=== PATIENT | female | born 1985 | race African-American/Black ===

== ENCOUNTER 2019-10-23 11:38 | Emergency (ER) | payer OTHER ==
[~2019-10-23] VITALS: Ht 157.5 cm; Wt 54.4 kg
[~2019-10-23 11:38] MED LIST: CEPHALEXIN500 MG ORAL; FLUCONAZOLE100 MG ORAL; IBUPROFEN600 MG ORAL; PHENAZOPYRIDIN200 MG ORAL
--- NOTE | 2019-10-23 11:51 | NUR ---
ED Nurse Note: Pt ambulated to ED d/t difficulty urinating with burning sensation. Pt stated "I was already here last week with same complaint, i was given ATB prescriptions but wasnt able to start because i was having problems with my insurance." Placed on bed. Obtained urine specimen.
[2019-10-23 12:02] VITALS: BP 116/71
[2019-10-23 12:06] LABS: APPEARANCE,URINE SLIGHTLY CLOUDY; BILIRUBIN, URINE NEGATIVE (NEGATIVE); GLUCOSE, URINE (UA) NEGATIVE (NEGATIVE); KETONES,URINE 1+ (NEGATIVE); LEUKOCYTE ESTERASE ,URINE 3+ (NEGATIVE); NITRITE,URINE POSITIVE (NEGATIVE); PH,URINE 5 (4.5-8.0); PROTEIN,URINE 3+ (NEGATIVE); UROBILINOGEN,URINE 1 MG/DL (0.0-1.0)
[2019-10-23 12:12] LABS: COLOR,URINE YELLOW
[2019-10-23] MEDS ORDERED: CEPHALEXIN500 MG ORAL (12:32)
[2019-10-23] MEDS ORDERED: PHENAZOPYRIDIN100 MG ORAL (12:32)
[2019-10-23 12:35] VITALS: BP 118/72
--- NOTE | 2019-10-23 12:35 | NUR ---
ER DISCHARGE NOTE: Pt is medically cleared to be discharged per ERMD. Pt is AOx4, VSS, on RA; no signs of acute distress. pt was given dc and prescription instructions, pt was able to verbalize understanding, pt id band removed. pt is able to ambulate with steady gait. pt took all belongings.
--- NOTE | 2019-10-23 14:00 | Emergency Room Report ---
History of Present Illness General Chief Complaint: Female Urogenital Problems Source: Patient Present Illness HPI 33-year-old female presents ED for evaluation. Complaining of dysuria and frequent urination since yesterday. Denies fevers or chills. Denies flank pain. Denies nausea or vomiting. States prior history of UTI and this feels the same. No other aggravating relieving factors. Denies any other associated symptoms Allergies: Coded Allergies: No Known Allergies (Unverified , 10/06/19) Patient History Past Medical History: none Past Surgical History: none Pertinent Family History: none Social History: Denies: smoking, alcohol use, drug use Last Menstrual Period: 09/13/19 Now: No Immunizations: UTD Reviewed Nursing Documentation: PMH: Agreed; PSxH: Agreed Nursing Documentation-PMH Past Medical History: No History, Except For Review of Systems All Other Systems: negative except mentioned in HPI Physical Exam Vital Signs Date Time Temp Pulse Resp B/P (MAP) Pulse Ox O2 Delivery O2 Flow Rate FiO2 10/23/19 11:46 98.8 85 16 116/71 (86) 100 Room Air Sp02 EP Interpretation: reviewed, normal General Appearance: no apparent distress, alert, GCS 15, non-toxic Head: normocephalic, atraumatic Eyes: bilateral eye normal inspection, bilateral eye PERRL ENT: hearing grossly normal, normal pharynx, no angioedema, normal voice Neck: full range of motion, supple/symm/no masses Respiratory: chest non-tender, lungs clear, normal breath sounds, speaking full sentences Cardiovascular #1: regular rate, rhythm, no edema Cardiovascular #2: 2+ carotid (R), 2+ carotid (L), 2+ radial (R), 2+ radial (L) , 2+ dorsalis pedis (R), 2+ dorsalis pedis (L) Gastrointestinal: normal bowel sounds, non tender, soft, non-distended, no guarding, no rebound Rectal: deferred Genitourinary: normal inspection, no CVA tenderness Musculoskeletal: back normal, normal range of motion, gait/station normal, non- tender Neurologic: alert, motor strength/tone normal, oriented x3, sensory intact, responsive, speech normal Psychiatric: judgement/insight normal, memory normal, mood/affect normal, no suicidal/homicidal ideation Reflexes: 3+ bicep (R), 3+ bicep (L), 3+ tricep (R), 3+ tricep (L), 3+ knee (R) , 3+ knee (L) Lymphatic: no adenopathy Medical Decision Making Diagnostic Impression: Primary Impression: Urinary tract infection Qualified Codes: N39.0 - Urinary tract infection, site not specified ER Course Hospital Course 33-year-old female presents to ED complaining of dysuria Differential diagnoses include: UTI, cystitis, pyelonephritis Clinical course Patient placed on stretcher. After initial history and physical I ordered UA, urine . UA +. Discussed findings with patient. Will discharge home with antibiotics and Pyridium. Safe for discharge for close outpatient follow-up. I will provide referrals Diagnosis - UTI Stable and discharged home with prescriptions for Rx Keflex, pyridium. Instructed to followup with PMD. Return to ED if symptoms recur or worsen Labs Test 10/23/19 11:55 Urine Color Yellow Urine Appearance Slightly cloudy Urine pH 5 (4.5-8.0) Urine Specific [place] 1.020 (1.005-1.035) Urine Protein 3+ (NEGATIVE) Urine Glucose (UA) Negative (NEGATIVE) Urine Ketones 1+ (NEGATIVE) Urine Blood 5+ (NEGATIVE) Urine Nitrite Positive (NEGATIVE) Urine Bilirubin Negative (NEGATIVE) Urine Urobilinogen 1 MG/DL (0.0-1.0) Urine Leukocyte Esterase 3+ (NEGATIVE) Urine RBC 15-20 /HPF (0 - 2) Urine WBC 30-40 /HPF (0 - 2) Urine Squamous Epithelial Cells Few /LPF (NONE/OCC) Urine Bacteria Moderate /HPF (NONE) Urine HCG, Qualitative Negative (NEGATIVE) Last Vital Signs Date Time Temp Pulse Resp B/P (MAP) Pulse Ox O2 Delivery O2 Flow Rate FiO2 10/23/19 12:35 98.8 62 16 118/72 100 Room Air Status: improved Disposition: HOME, SELF-CARE Condition: Stable Scripts Phenazopyridine Hcl* (PYRIDIUM*) 100 Mg Tablet 100 MG ORAL THREE TIMES A DAY for 3 Days, TAB Prov: Naldo Dubon MD 10/23/19 Cephalexin* (KEFLEX*) 500 Mg Capsule 500 MG ORAL EVERY 6 HOURS for 7 Days, #28 CAP Prov: Naldo Dubon MD 10/23/19 Referrals: [facility] Patient Instructions: Urinary Tract Infection Naldo Dubon MD Oct 23, 2019 14:00
== END 2019-10-23 12:35 | disposition home or self-care (01) ==
LOC: EMR 12:20
DX: N39.0 Urinary tract infection, site not specified (principal)
CPT/HCPCS: 81003; 81025; 87086; 87181; Z7502; 99283